=== PATIENT | female | born 1970 | race Caucasian/White ===

== ENCOUNTER 2017-08-28 11:05 | Emergency (ER) | payer OTHER ==
[~2017-08-28] VITALS: Ht 152.4 cm; Wt 71.5 kg
[~2017-08-28 11:05] MED LIST: GLIP10TA9 PO; METF10002 PO; METO5TAB95 PO; PARO20TA24 PO
[2017-08-28] MEDS ORDERED: INSU100I26 SQ (11:18)
[2017-08-28] MEDS ORDERED: ASPI-1182 PO (11:18)
[2017-08-28] MEDS ORDERED: SIMV-259 PO (11:18)
[2017-08-28] MEDS ORDERED: RANI150T7 PO (11:18)
[2017-08-28] MEDS ORDERED: LISI-660 PO (11:18)
[2017-08-28] MEDS ORDERED: ALOG25TA2 PO (11:18)
[2017-08-28 11:28] LABS: GLUCOSE,POINT OF CARE 209 MG/DL (70-110)
[2017-08-28] MEDS ORDERED: METHOCARBAMOL 500 MG TABLET PO ONE (12:30)
[2017-08-28] MEDS ORDERED: KETOROLAC TROMETHAMINE 60 MG/2 ML VIAL IM ONE (12:30)
[2017-08-28 13:07] VITALS: BP 118/76
== END 2017-08-28 14:14 | disposition home or self-care (01) ==
LOC: EMS 11:11
DX: S29.012A Strain of muscle and tendon of back wall of thorax, initial encounter (principal); S16.1XXA Strain of muscle, fascia and tendon at neck level, initial encounter; E11.9 Type 2 diabetes mellitus without complications; E78.00 Pure hypercholesterolemia, unspecified; I10 Essential (primary) hypertension; X58.XXXA Exposure to other specified factors, initial encounter; Y93.89 Activity, other specified; Y92.89 Other specified places as the place of occurrence of the external cause; Y99.8 Other external cause status
CPT/HCPCS: 82962; 96372; 99283; J1885

== ENCOUNTER 2017-12-04 17:11 | Emergency (ER) | payer OTHER ==
[~2017-12-04] VITALS: Ht 154.9 cm; Wt 75.0 kg
[~2017-12-04 17:11] MED LIST changes: +ALOG25TA2 PO; +ASPI-1182 PO; +INSU100I26 SQ; +LISI-660 PO; -METF10002 PO; +METF10004 PO; -METO5TAB95 PO; +RANI150T7 PO; +SIMV-259 PO
[2017-12-04 17:19] VITALS: BP 113/64
[2017-12-04 17:41] LABS: GLUCOSE,POINT OF CARE 123 MG/DL (70-110)
== END 2017-12-04 20:08 | disposition left against medical advice (07) ==
LOC: EMS 17:12
DX: R51 Headache (principal); R11.10 Vomiting, unspecified; Z53.21 Procedure and treatment not carried out due to patient leaving prior to being seen by health care provider